=== PATIENT | female | born 1960 | race Caucasian/White ===

== ENCOUNTER → 2017-04-25 | Outpatient (CLI) | payer BC ==
[~2017-04-25] MED LIST: ASCA500 PO; ASPI-113 PO; GLCSUNK PO; MULT-506 PO; OMEG10007 PO
== END | disposition home or self-care (01) ==
LOC: C.PATHSPEC 11:50
PROVIDERS: ATTEND Dentist Endodontics
DX: K04.7 Periapical abscess without sinus (principal)